=== PATIENT | female | born 1945 | race Caucasian/White ===

== ENCOUNTER 2022-10-30 05:52 | Emergency (ER) | payer MEDICARE ==
[2022-10-30 06:13] VITALS: BP 124/66; PULSE 81
== END 2022-10-30 07:48 | disposition home or self-care (01) ==
LOC: JP.ED 05:52
DX: M17.12 Unilateral primary osteoarthritis, left knee (principal); I48.91 Unspecified atrial fibrillation; I25.10 Atherosclerotic heart disease of native coronary artery without angina pectoris; E03.9 Hypothyroidism, unspecified; I11.0 Hypertensive heart disease with heart failure; I50.9 Heart failure, unspecified; E78.00 Pure hypercholesterolemia, unspecified; Z79.01 Long term (current) use of anticoagulants; Z79.899 Other long term (current) drug therapy; Z86.73 Personal history of transient ischemic attack (TIA), and cerebral infarction without residual deficits
CPT/HCPCS: 73562-26-LT; 73562-LT; 99283

== ENCOUNTER 2023-03-19 03:21 | Emergency (ER) | payer MEDICARE, OTHER ==
[2023-03-19 03:55] VITALS: BP 132/49; PULSE 55
[2023-03-19] MEDS ORDERED: Ketorolac 30 MG/ML SDV IM ONE (04:27)
[2023-03-19] MEDS ORDERED: HYDROmorphone 1 MG/ML Syringe IM ONE (04:27)
== END 2023-03-19 04:57 | disposition home or self-care (01) ==
LOC: JP.ED 03:21
DX: M79.605 Pain in left leg (principal); M79.604 Pain in right leg; E03.9 Hypothyroidism, unspecified; I48.91 Unspecified atrial fibrillation; I25.10 Atherosclerotic heart disease of native coronary artery without angina pectoris; I11.0 Hypertensive heart disease with heart failure; I50.9 Heart failure, unspecified; E78.00 Pure hypercholesterolemia, unspecified; Z86.73 Personal history of transient ischemic attack (TIA), and cerebral infarction without residual deficits; Z95.0 Presence of cardiac pacemaker; Z79.01 Long term (current) use of anticoagulants; Z79.899 Other long term (current) drug therapy
CPT/HCPCS: 96372; 99283; J1170; J1885